=== PATIENT | male | born 1945 | race Caucasian/White ===

== ENCOUNTER → 2018-10-26 09:30 | Outpatient (CLI) | payer MEDICARE, BC ==
[2013-08-16 11:27] VITALS: BMI 28.8
[~2018-10-26 09:30] MED LIST: ASPIRIN 81 MG E81 MG PO; CHLORASEPTIC S180 ML MM; FOLIC ACID1 MG PO; METHOTREXATE2.5 MG PO; NEURONTIN800 MG PO; NIFEDIPINE ER30 MG PO; NITROSTAT0.4 MG SL; NORCO 5/325 TAB1 TA1 PO; ORAPRED ODT10 MG/TAB PO; PLAVIX75 MG PO; PRAVACHOL40 MG PO; PREDNISONE10 MG PO; PROCARDIA XL 3030 MG PO; PROTONIX40 MG PO; TOPROL XL50 MG PO; XANAX0.5 MG PO
== END | disposition home or self-care (01) ==
LOC: D.CT 09:30
PROVIDERS: ATTEND Internal Medicine Cardiovascular Disease
DX: I70.293 Other atherosclerosis of native arteries of extremities, bilateral legs (principal)

== ENCOUNTER 2018-12-11 09:25 | Outpatient (CLI) | payer MEDICARE, BC ==
[~2018-12-11] VITALS: Ht 175.3 cm; Wt 88.6 kg
--- NOTE | ~2018-12-11 | HEMODYNAMI ---
PATIENT:MEGHA ALBA MEDICAL RECORD: [id number] : 41 LOCATION:[facility] ADMISSION DATE: 12/11/18 Generatedon:12/11/201815:01 Patient name: MEGHA ALBA Patient #: [id number] SSN: D OB: 1945 Date of study: 12/11/2018 Page: Of Hemodynamic Procedure Report Patient Data Patient Demographics Procedure consent was obtained First Name: MEGHA Gender: Male Last Name: PARTH : 1945 Patient #: [id number] Age: 73 year(s) Race: Unknown Additional ID: [id number] Contact details [address]: [address] [place] [address] RO[address] State: [place] City: [place] Zip code: [address] Past Medical History Allergies Allergen Reaction Date Comments Reported Sulfa drugs 12/11/2018 Admission Admission Data Admission Date: 12/11/2018 Admission Time: 9:25 Procedure Procedure Types Cath Procedure Peripheral Cath Diagnostic Procedure Travelift Operator Peripheral Procedures Abd/Extremity Extremities Bilat Lower Extremity Procedure Description Procedure Date Procedure Date: 12/11/2018 Procedure Start Time: 13:01 Procedure Staff Name Function Marv Navarro MD Performing Physician Clare Molina RT Bingo Manager Lidia Martinez RN Nurse Sonja Duarte RN Nurse Dakota Michael RT Scrub Harinder Simons CRNA Additional personnel Procedure Data Cath Procedure Fluoroscopy Diagnostic fluoroscopy Total fluoroscopy Time: time: 30.4 min 30.4 min Diagnostic fluoroscopy Total fluoroscopy dose: 485 dose: 485 mGy mGy Contrast Material Contrast Material Type Amount (ml) Isovue 300 90 Entry Location Entry Primary Successful Side Size Upsize Upsize Entry Closure Succes sful Closure Location (Fr) 1 (Fr) 2 (Fr) Remarks Device Remarks Femoral Exoseal artery Diagnostic catheters Device Type Used For End Catheter Placement DIAGNOSTIC IMT 5Fr Catheter ([id number]) Procedure Medications Medication Administration Route Dosage Heparin Flush Bag added to field 2 bags (1000units/500ml NS) Lidocaine 1% added to field 20 Heparin Bolus I.V. 5000 units Heparin Bolus I.V. 3000 units Nitroglycerin IC/IA I.A. 300 mcg Heparin Bolus I.V. 3000 units Hemodynamics Rest Pre Cath Intra NCS Post Cath Medications Time Medication Route Dose Verified Delivered Reason Notes Effe ctiveness by by 12:47:15 Heparin Flush added 2 Marv Fair used for Bag to bags Melanie Navarro procedure (1000units/500ml field MD APARICIO NS) 12:53:43 Lidocaine 1% added 20ml Marv Fair for local to vial Melanie Navarro anesthetic field MD APARICIO 13:08:35 Heparin Bolus I.V. 5000 Marv Sonja Per units Melanie Duarte RN physician 13:49:50 Heparin Bolus I.V. 3000 Marv Sonja Per units Melanie Duarte RN physician 14:12:34 Nitroglycerin I.A. 300 Marv Fair used for IC/IA mcg Melanie Navarro procedure MD APARICIO 14:31:17 Heparin Bolus I.V. 3000 Marv Sonja Per units Melanie Duarte RN physician Procedure Log Time Note 11:58:08 Use device set IR Diagnostic 12:00:05 Micropuncture VSI 4FR kit opened to sterile field. 12:00:06 GREENE 260 wire ([id number]) opened to sterile field. 12:00:07 BENTSON 145cm wire (D78784) opened to sterile field. 12:00:08 AMPLATZ Super stiff Straight 260cm wire ([id number]) opened to sterile field. 12:00:09 Tegaderm 4 x 4 (1626W) opened to sterile field. 12:00:10 Sterile Angiographic Pack opened to sterile field. 12:00:25 Bag Decanter (2002S) opened to sterile field. 12:09:54 - 12:34:51 Time tracking: Regular hours (M-F 7:00 - 5:00) 12:35:01 Plan of Care:Hemodynamics will remain stable., Cardiac rhythm will remain stable., Comfort level will be maintained., Respiratory function will remain adequate., Patient/ family verbilizes understanding of procedure., Procedure tolerated without complication., Recovers from procedure without complications.. 12:35:15 Patient received from Outpatients to IR Alert and oriented. Tansferred to table in Supine position. 12:35:23 Signed procedure consent form obtained from patient. 12:35:35 H&P Date Dictated: 12/11/2018 Within 30 days and on chart.. 12:35:41 Correct patient and procedure confirmed by team. 12:35:45 Pre-procedure instructions explained to patient. 12:35:46 Pre-op teaching completed and patient verbalized understanding. 12:35:49 Family in waiting room. 12:35:50 - 12:36:20 Patient allergic to Sulfa drugs 12:36:31 Is the patient allergic to Iodine/contrast media? No. 12:36:33 Is the patient allergic to Iodine/contrast media? No. 12:36:51 Patient diabetic? No. 12:36:54 - 12:36:57 ----Pre-sedation anethsthesia assessment.----see anesthesia notes for monitoring of patient during procedure 12:37:33 - 12:38:29 Pre procedure: left dorsailis pedis pulse Doppler 12:38:35 Pre procedure: left posterior tibial pulse Doppler 12:39:15 IV patent on arrival in left forearm with D5/.45%NaCl at KVO. 12:39:25 Left groin area was prepped with chlora-prep and draped in sterile fashion 12:39:27 - 12:41:08 Pre procedure: right dorsailis pedis pulse 0-Absent 12:41:13 Pre procedure: right posterior tibial pulse 0-Absent 12:41:16 - 12:44:03 SHEATH 6FR Destination (RSR01) opened to sterile field. 12:45:36 Harinder Simons CRNA present and monitoring patient for TIVA. 12:47:15 Heparin Flush Bag (1000units/500ml NS) 2 bags added to field was administered by Marv Navarro MD; used for procedure; 12:53:43 Lidocaine 1% 20ml vial added to field was administered by Marv castillo MD; for local anesthetic; 12:56:[address] [facility] .035 260 glide wire ([id number]) opened to sterile field. 12:56:04 A DIAGNOSTIC IMT 5Fr Catheter ([id number]) was advanced over the wire an d used for . 12:57:32 Physician arrived 12:57:32 --------ALL STOP TIME OUT------ 12:57:33 Final Timeout: patient, procedure, and site verified with staff and physician. All members of the team are in agreement. 13:01:09 CXI SUPPORT .035 135 CM STR catheter ([id number]) opened to sterile field. 13:01:18 Procedure started. 13:01:18 Full Disclosure recording started 13:06:16 SHEATH 5FR Corea (RTN295) opened to sterile field. 13:08:35 Heparin Bolus 5000 units I.V. was administered by Sonja Duarte RN; Per physician; 13:22:29 GLIDE WIRE ANGLE 260cm (LV3766) opened to sterile field. 13:27:49 CHOICE PT Extra Support J 300cm guide wire ([id number]) opened to steril e field. 13:27:59 INFLATOR BasixTOUCH (CH9085) opened to sterile field. 13:28:36 Inflate balloon Inflation number: 1 A CHOCOLATE 3.0 x 40 x 150 balloon ([id number]) was prepped and advanced across the Undefined1 , then inflated . 13:48:14 Inflate balloon Inflation number: 1 A Ingraham Plus 2 x 4 x 130 Balloon ([id number]) was prepped and advanced across the Undefined2 , then inflated . 13:49:50 Heparin Bolus 3000 units I.V. was administered by Sonja Duarte RN; Per physician; 13:55:19 COPILOT Valve Control (7928444) opened to sterile field. 14:05:24 SPIDER EMBOLIC PROTECTION DEVICE 3MM ([id number]) opened to sterile field. 14:10:11 Rescale Medium Atherectomy System (H1-M) opened to sterile field. 14:12:34 Nitroglycerin IC/IA 300 mcg I.A. was administered by Marv Navarro MD; used for procedure; 14:25:27 Inflate balloon Inflation number: 1 A IN.PACT Admiral 5 x 150 x 130 DCB balloon ([id number]) was prepped and advanced across the Undefined3 , then inflated . 14:31:17 Heparin Bolus 3000 units I.V. was administered by Sonja Duarte RN; Per physician; 14:35:19 Inflate balloon Inflation number: 1 A IN.PACT Admiral 6 x 120 x 130 DCB Balloon ([id number]) was prepped and advanced across the Undefined4 , then inflated . 14:42:46 EVERFLEX 6 x 150 Stent ([id number]) was deployed across Undefined4 . 14:49:48 SHEATH 6FR Corea (AWI305) opened to sterile field. 14:52:41 EXOSEAL 6Fr (EX600) opened to sterile field. 14:53:22 A sheath was inserted into the Femoral artery 14:53:22 Sheath removed intact; hemostasis achieved with Exoseal to the Femoral artery. 14:53:26 Procedure ended.(Physican Out) 14:54:16 Fluoroscopy time 30.40 minutes. 14:54:24 Fluoroscopy dose: 485 mGy 14:54:24 Flurop Dose total: 485 14:54:29 Contrast amount:Isovue 300 90ml. 14:54:39 Patient needs reinforcement of post procedure teaching. 14:56:53 Report given to Outpatients. Intervention Summary Intervention Notes Time ActionType Lesion and Equipment Used Action# Pressure Duration Attributes 13:28:36 Inflate Undefined1 CHOCOLATE 3.0 x 1 0 00:00 balloon 40 x 150 balloon ([id number]) 13:48:14 Inflate Undefined2 Ingraham Plus 2 x 1 0 00:00 balloon 4 x 130 Balloon ([id number]) 14:25:27 Inflate Undefined3 IN.PACT Admiral 5 1 0 00:00 balloon x 150 x 130 DCB balloon ([id number]) 14:35:19 Inflate Undefined4 IN.PACT Admiral 6 1 0 00:00 balloon x 120 x 130 DCB Balloon ([id number]) 14:42:46 Deploy self Undefined4 EVERFLEX 6 x 150 1 expanding Stent stent ([id number]) Device Usage Item Name Manufacture Quantity Catalog Number [facility] Minimal Lot# / Charge Number Stock Stock Serial# Code Micropuncture VSI VSI VASCULAR 1 [id number] 999 273 5 4FR kit SOLUTIONS GREENE 260 wire [employer] 1 P85008 579951 62380 999 540 5 (V42887) BENTSON 145cm [employer] 1 W18247 056438 999 647 5 wire (O62637) AMPLATZ Super [place] 1 [id number] 041490 83225 999 961 5 stiff Straight Scientific 260cm wire ([id number]) Tegaderm 4 x 4 3M 1 1626W 005329 299770 991 634 5 (1626W) Sterile Cardinal 1 [id number] 710987 998 135 5 Angiographic Pack Health Bag Decanter Microtek 1 809116 07532 986 234 5 () Medical Inc. SHEATH 6FR Terumo 1 RSR01 382175 63537 999 607 5 Destination (RSR01) ROADRUNNER .035 [employer] 1 F48176 431196 559282 999 795 5 [id number] 260 glide wire (F43270) DIAGNOSTIC IMT [place] 1 [id number] 274419 355180 997 30 5 [id number] 5Fr Catheter Scientific ([id number]) CXI SUPPORT .035 [employer] 1 I50088 231336 286035 999 817 5 [id number] 135 CM STR catheter (J20861) SHEATH 5FR Terumo 1 RYU137 918696 107616 994 941 5 Corea (PST356) GLIDE WIRE ANGLE Terumo 1 OH6186 674693 907476 999 472 5 260cm (EJ4797) CHOICE PT Extra [place] 1 [id number] 185098 710060 998 947 5 Support J 300cm Scientific guide wire ([id number]) INFLATOR Merit 1 EH3837 053488 977427 999 736 5 Basix[employer] (PE5241) CHOCOLATE 3.0 x Medtronic 1 [id number] O 760091 533593 999 994 5 40 x 150 balloon TW ([id number]) Ingraham Plus 2 x Medtronic 1 [id number] 661860 772171 999 997 5 4 x 130 Balloon ([id number]) COPILOT Valve Jimenez 1 3634621 155553 119525 999 776 5 Control (6171426) Vascular SPIDER EMBOLIC Medtronic 1 PQH0-LM-860-320 473429 999 978 5 PROTECTION DEVICE 3MM ([id number]) Hawkone Medium Medtronic 1 H1-M 089370 999 21934 5 Atherectomy System (H1-M) IN.PACT Admiral 5 Medtronic 1 [id number] 685444 8761381 999 967 5 [id number] x 150 x 130 DCB balloon ([id number]) IN.PACT Admiral 6 Medtronic 1 [id number] 463111 707654 999 979 5 x 120 x 130 DCB Balloon ([id number]) EVERFLEX 6 x 150 Medtronic 1 [id number] 532192 676056 999 996 5 [id number] Stent [id number] ([id number]) SHEATH 6FR Terumo 1 YDW306 209011 920855 995 507 40 Corea (TRB014) EXOSEAL 6Fr Cardinal 1 EX600 251887 233332 996 466 10 [id number] (EX600) Health Signature Audit Labelle Stage Time Signature Unsigned Intra-Procedure 12/11/2018 Clare Molina 3:01:24 PM RT(R) [facility] [address] [id number]
[2018-12-11 09:52] LABS: BASOPHILS 0.1 % (0-2); EOSINOPHILS 0.3 % (0-7); HEMATOCRIT 40.7 % (42.0-54.0); HEMOGLOBIN 13.8 g/dL (13.5-17.5); IMMATURE GRANULOCYTES 0.7 % (0-5); LYMPHOCYTES 9.3 % (15-50); MCH 27.9 pg (26.0-34.0); MCHC 33.9 g/dL (31.0-37.0); MCV 82.4 fL (80.0-100.0); MEAN PLATELET VOLUME 9.5 fL (7.4-10.4); MONOCYTES 9.7 % (2-11); NEUTROPHILS 79.9 % (40-80); RBC 4.94 10x6/uL (4.20-6.10); RDW 15.1 % (11.5-14.5); WBC 9.1 10x3/uL (4.8-10.8)
[2018-12-11 09:56] LABS: ANION GAP 14.4 mmol/L (8-16); CALCIUM 8.9 mg/dL (8.5-10.1); CARBON DIOXIDE 25.6 mmol/L (21.0-32.0); CREATININE - SERUM 1.2 mg/dL (0.6-1.3)
[2018-12-11 09:57] LABS: PLATELET COUNT 230 10x3/uL (130-400)
[2018-12-11 10:02] LABS: INR 1.11 (0.85-1.17); PROTIME 13.8 SECONDS (11.6-15.0)
[2018-12-11 10:03] LABS: APTT 31.4 SECONDS (22.8-39.4)
[2018-12-11] MEDS ORDERED: PREDNISONE5 MG PO (10:52)
[2018-12-11] MEDS ORDERED: ELIQUIS2.5 MG PO (10:52)
[2018-12-11] MEDS ORDERED: LIPITOR20 MG PO (10:53)
[2018-12-11] MEDS ORDERED: LASIX40 MG PO (10:55)
[2018-12-11] MEDS ORDERED: ISOSORBIDE MONO30 M1 PO (10:56)
[2018-12-11] MEDS ORDERED: NAPROSYN500 MG PO (10:58)
[2018-12-11] MEDS ORDERED: PROCHLORPERAZINE PO (10:59)
[2018-12-11 11:18] VITALS: BP 140/71; Ht 175.3 cm; Wt 88.6 kg
--- NOTE | 2018-12-11 15:59 | NUR ---
1550-REC'D FROM RR. AWAKE AND ALERT,DENIES PAIN. VSS. 02 VIA N/C AT 4L. DRESSING TO LEFT GROIN CDI. NO HEMATOMA. ORDERS TO DISCHARGE HOME AT 1900
--- NOTE | 2018-12-11 18:21 | NUR ---
1615-LEFT GROIN CDI, NO HEMATOMA, VSS,DENIES COMPLAINTS. WATER AT BEDSIDE IN EASY REACH. SON AT BEDSIDE WELL CL IN EASY REACH. AWARE HE WILL BE ABLE TO SIT UP AT 1900
--- NOTE | 2018-12-11 18:22 | NUR ---
1715-NO CHANGES, DRESSING CONTINUE TO BE CDI, NO HEMATOMA, VSS, CL IN EASY REACH.FINGER FOOD TRAY TO ROOM.
--- NOTE | 2018-12-11 18:23 | NUR ---
1814-DRESSING TO LEFT GROIN CDI, NO HEMATOMA,VSS, DENIES COMPLAINTS.
--- NOTE | 2018-12-11 18:50 | NUR ---
PATIENT AMBULATES TO BATHROOM AND VOIDS IN TOILET WITHOUT DIFFICULTY. PIV DC'D WITH TIP INTACT. PATIENT DRESSING IN PERSONAL CLOTHING
--- NOTE | 2018-12-11 19:10 | NUR ---
DISCHARGE INSTRUCTIONS REVIEWED WITH PATIENT BY ADILSON CLEARY RN. LEFT GROIN DRESSING AND AREA CHECKED, DRESSING C/D/I, AREA SOFT, NONTENDER, NONEDEMATOUS. LEFT PEDAL PULSES HEARD ON DOPPLER. DISCHARGED HOME VIA WHEELCHAIR TO PRIVATE VEHICLE WITH SON
== END 2018-12-11 19:10 | disposition home or self-care (01) ==
LOC: D.SP 09:25 → D.RAD 12:00 → D.SP 19:10
PROVIDERS: ATTEND Radiology Diagnostic Radiology
DX: I70.211 Atherosclerosis of native arteries of extremities with intermittent claudication, right leg (principal); Z01.812 Encounter for preprocedural laboratory examination